=== PATIENT | male | born 1985 | race African-American/Black ===

== ENCOUNTER 2019-04-28 19:42 | Emergency (ER) | payer SELFPAY ==
[~2019-04-28] VITALS: Ht 193 cm; Wt 102.0 kg
[2019-04-28] MEDS ORDERED: KETOROLAC 30MG/ML VIAL IM ONE (20:15)
[2019-04-28] MEDS ORDERED: HYDROCODONE/ACETAMINOPHEN 5/325MG TABLET PO ONE (20:15)
[2019-04-28 22:07] VITALS: BP 138/75
== END 2019-04-28 22:09 | disposition home or self-care (01) ==
LOC: ER 19:57
DX: S09.8XXA Other specified injuries of head, initial encounter (principal); S13.9XXA Sprain of joints and ligaments of unspecified parts of neck, initial encounter; M54.5 Low back pain; F43.10 Post-traumatic stress disorder, unspecified; V43.52XA Car driver injured in collision with other type car in traffic accident, initial encounter; Y93.89 Activity, other specified; Y92.488 Other paved roadways as the place of occurrence of the external cause
CPT/HCPCS: 70450; 72125; 96372; 99284; J1885